=== PATIENT | female | born 1995 | race Caucasian/White ===

== ENCOUNTER 2023-01-15 02:02 | Emergency (ER) | payer SELFPAY ==
[2023-01-15 02:18] VITALS: BP 161/100; PULSE 98; RESP 18; TEMP 98.4
[2023-01-15] MEDS ORDERED: CLINDAMYCIN 600MG PREMIX IVPB 600 MG/50 ML BAG IVPB ONE (05:26)
[2023-01-15 05:35] LABS: BASO % 0.4 % (0-2.0); EOS % 1.3 % (0-4.5); HEMATOCRIT 29.8 % (32.4-45.2); HEMOGLOBIN 9.9 GM/dL (10.7-15.3); LYMPH % 18.7 % (8-40); MCH 28.8 pg (25.7-33.7); MCHC 33.1 g/dl (32.0-36.0); MEAN CELL VOLUME 86.9 fl (80-96); MEAN PLT VOLUME 8.8 fl (7.5-11.1); MONO % 10.5 % (3.8-10.2); NEUT % 69.1 % (42.8-82.8); PLATELET COUNT 280 10^3/uL (134-434); RBC 3.43 M/mm3 (3.60-5.2); WHITE BLOOD COUNT 4.9 K/mm3 (4.0-10.0)
[2023-01-15 05:36] LABS: POTASSIUM 4.1 mmol/L (3.5-5.1)
[2023-01-15 05:38] LABS: ALBUMIN 3.1 g/dl (3.4-5.0); BLOOD UREA NITROGEN 11.2 mg/dL (7-18); CALCIUM 8.9 mg/dL (8.5-10.1)
[2023-01-15 05:41] LABS: CREATININE 0.6 mg/dL (0.55-1.3)
[2023-01-15 05:43] LABS: BILIRUBIN,TOTAL 0.2 mg/dL (0.2-1); TOT PROT 7.3 g/dl (6.4-8.2)
== END 2023-01-15 06:24 | disposition left against medical advice (07) ==
LOC: EDBD 02:02 → JER 02:02
CPT/HCPCS: 36415; 73590-TC-RT-FY; 80053; 84702; 85025; 93005; 93010; 99285-25

== ENCOUNTER 2023-06-02 01:46 | Observation (INO) | payer SELFPAY ==
[2023-06-02 02:00] VITALS: BMI 33.6
[2023-06-02 03:50] LABS: BASO % 0.6 % (0-2.0); EOS % 3.3 % (0-4.5); HEMATOCRIT 34.6 % (32.4-45.2); HEMOGLOBIN 11.2 GM/dL (10.7-15.3); LYMPH % 25.2 % (8-40); MCH 26.8 pg (25.7-33.7); MCHC 32.3 g/dl (32.0-36.0); MEAN PLT VOLUME 8.4 fl (7.5-11.1); MONO % 13.9 % (3.8-10.2); PLATELET COUNT 269 10^3/uL (134-434); RBC 4.17 M/mm3 (3.60-5.2); RDW 16.7 % (11.6-15.6); WHITE BLOOD COUNT 4.6 K/mm3 (4.0-10.0)
[2023-06-02 04:01] LABS: POTASSIUM 4.1 mmol/L (3.5-5.1)
[2023-06-02 04:05] LABS: ALBUMIN 3.8 g/dl (3.4-5.0); BLOOD UREA NITROGEN 13.3 mg/dL (7-18); CALCIUM 9.2 mg/dL (8.5-10.1)
[2023-06-02 04:07] LABS: CREATININE 0.7 mg/dL (0.55-1.3)
[2023-06-02 04:08] LABS: BILIRUBIN,TOTAL 0.2 mg/dL (0.2-1); TOT PROT 8.4 g/dl (6.4-8.2)
[2023-06-02 04:10] LABS: N-TERMINAL BNP 47.9 pg/ml (5-125)
[2023-06-02] MEDS ORDERED: CLINDAMYCIN 600MG PREMIX IVPB 600 MG/50 ML BAG IVPB ONE ×2 (04:35→05:14)
[2023-06-02 05:22] VITALS: BP 99/60; PULSE 81; RESP 14; TEMP 98.3
[2023-06-02 06:37] LABS: INR 1.07 (0.83-1.09); PROTHROMBIN TIME (PATIENT) 12.4 SEC (9.7-13.0)
== END 2023-06-02 06:20 | disposition left against medical advice (07) ==
LOC: JER 01:46 → JERBED 05:40
PROVIDERS: ADMIT Internal Medicine; ATTEND Internal Medicine
CPT/HCPCS: 36415; 71045-TC-FY; 80053; 83735; 83880; 84484; 84703; 85025; 85610; 85730; 86140; 93005; 93010; 99285-25; G0378

== ENCOUNTER 2023-06-03 05:43 | Inpatient (IN) | payer OTHER ==
[2023-06-03 05:49] VITALS: BP 152/84; PULSE 65; RESP 17; BMI 34.3
[2023-06-03 05:50] VITALS: TEMP 98.4
[2023-06-03] MEDS ORDERED: CLINDAMYCIN 600MG PREMIX IVPB 600 MG/50 ML BAG IVPB ONE ×2 (07:12→07:33)
[2023-06-03 07:37] LABS: POTASSIUM 4.1 mmol/L (3.5-5.1)
[2023-06-03 07:38] LABS: CALCIUM 9.1 mg/dL (8.5-10.1)
[2023-06-03 07:39] LABS: ALBUMIN 3.6 g/dl (3.4-5.0); BLOOD UREA NITROGEN 14.1 mg/dL (7-18)
[2023-06-03 07:43] LABS: BILIRUBIN,TOTAL 0.2 mg/dL (0.2-1); CREATININE 0.7 mg/dL (0.55-1.3)
[2023-06-03 07:47] LABS: BASO % 0.5 % (0-2.0); EOS % 3.1 % (0-4.5); HEMATOCRIT 31.6 % (32.4-45.2); HEMOGLOBIN 9.9 GM/dL (10.7-15.3); LYMPH % 29.3 % (8-40); MCHC 31.3 g/dl (32.0-36.0); MEAN CELL VOLUME 83.1 fl (80-96); MEAN PLT VOLUME 7.7 fl (7.5-11.1); MONO % 9.3 % (3.8-10.2); NEUT % 57.8 % (42.8-82.8); PLATELET COUNT 369 10^3/uL (134-434); RBC 3.81 M/mm3 (3.60-5.2); WHITE BLOOD COUNT 3.9 K/mm3 (4.0-10.0)
== END 2023-06-03 12:09 | disposition home or self-care (01) | DRG 383 ==
LOC: JER 05:43 → JERBED 09:27
PROVIDERS: ADMIT Internal Medicine; ATTEND Internal Medicine
DX: L03.116 Cellulitis of left lower limb (principal); F17.210 Nicotine dependence, cigarettes, uncomplicated; R06.09 Other forms of dyspnea; R26.2 Difficulty in walking, not elsewhere classified; R60.0 Localized edema; L03.115 Cellulitis of right lower limb
CPT/HCPCS: 36415; 80053; 85025; 93970-TC; 99285-25

== ENCOUNTER 2023-06-21 06:21 | Emergency (ER) | payer OTHER ==
[2023-06-21 06:37] VITALS: BP 143/87; PULSE 98; RESP 22; TEMP 98.3; BMI 40.0
== END 2023-06-21 08:14 | disposition left against medical advice (07) ==
LOC: JER 06:21
DX: R22.43 Localized swelling, mass and lump, lower limb, bilateral (principal); L53.9 Erythematous condition, unspecified; Z53.21 Procedure and treatment not carried out due to patient leaving prior to being seen by health care provider
CPT/HCPCS: 99281-25

== ENCOUNTER 2023-06-27 02:13 | Inpatient (IN) | payer OTHER ==
[2023-06-27 02:27] VITALS: BMI 35.2
[2023-06-27 04:49] LABS: EOS % 2.9 % (0-4.5); HEMATOCRIT 27.3 % (32.4-45.2); HEMOGLOBIN 9.1 GM/dL (10.7-15.3); LYMPH % 30.3 % (8-40); MCHC 33.4 g/dl (32.0-36.0); MEAN CELL VOLUME 80.6 fl (80-96); MEAN PLT VOLUME 7.4 fl (7.5-11.1); MONO % 10.9 % (3.8-10.2); NEUT % 54.9 % (42.8-82.8); PLATELET COUNT 297 10^3/uL (134-434); RBC 3.39 M/mm3 (3.60-5.2); RDW 15.5 % (11.6-15.6); WHITE BLOOD COUNT 4.2 K/mm3 (4.0-10.0)
[2023-06-27 05:01] LABS: POTASSIUM 3.7 mmol/L (3.5-5.1)
[2023-06-27 05:03] LABS: CALCIUM 8.6 mg/dL (8.5-10.1)
[2023-06-27 05:04] LABS: ALBUMIN 3.3 g/dl (3.4-5.0); BLOOD UREA NITROGEN 13.4 mg/dL (7-18)
[2023-06-27] MEDS ORDERED: VANCOMYCIN 1,000 MG in DEXTROSE 5%-WATER - 250 ML IVPB ONE (05:06)
[2023-06-27 05:07] LABS: CREATININE 0.8 mg/dL (0.55-1.3)
[2023-06-27 05:08] LABS: BILIRUBIN,TOTAL 0.1 mg/dL (0.2-1)
[2023-06-27] MEDS ORDERED: VANCOMYCIN 1 GRAM (PRE-DOCKED) 1,000 MG/250 ML BAG IVPB ONE (06:24)
[2023-06-27 08:03] VITALS: BP 132/72; PULSE 85; RESP 16; TEMP 99
[2023-06-27] MEDS ORDERED: ENOXAPARIN NA (PORCINE) 40 MG/0.4 ML DISP.SYRIN SQ ONE (09:56)
[2023-06-27] MEDS ORDERED: ENOXAPARIN NA (PORCINE) 40 MG/0.4 ML DISP.SYRIN SQ SCH (10:00)
[2023-06-27] MEDS ORDERED: VANCOMYCIN/WATER 1250 MG 1,250 MG/250 ML BAG IVPB SCH ×2 (18:00)
== END 2023-06-27 10:41 | disposition left against medical advice (07) | DRG 383 ==
LOC: JER 02:13 → JERBED 07:56
PROVIDERS: ADMIT Internal Medicine; ATTEND Internal Medicine
DX: L03.116 Cellulitis of left lower limb (principal); L03.115 Cellulitis of right lower limb; F17.210 Nicotine dependence, cigarettes, uncomplicated; M79.89 Other specified soft tissue disorders
CPT/HCPCS: 36415; 80053; 84703; 85025; 87040; 93005; 93010; 99285-25

== ENCOUNTER 2023-06-28 22:47 | Observation (INO) | payer OTHER ==
[2023-06-28] MEDS ORDERED: DALBAVANCIN HCL 1,500 MG in DEXTROSE 5%-WATER - 500 ML IVPB ONE (22:56)
[2023-06-28] MEDS ORDERED: PIPERACILLIN/TAZOB 4.5 GM 4.5 GM in DEXTROSE 5%-WATER 100 ML IVPB ONE (23:02)
[2023-06-28] MEDS ORDERED: PIPERACILLIN/TAZOBACTAM 4.5 GM VIAL IVPB ONE (23:34)
[2023-06-28 23:39] LABS: HEMATOCRIT 29.5 % (32.4-45.2); HEMOGLOBIN 9.6 G/dL (10.7-15.3); MCH 26.9 pg (25.7-33.7); MCHC 32.7 g/dl (32.0-36.0); MEAN CELL VOLUME 82.4 fl (80-96); MEAN PLT VOLUME 7.9 fl (7.5-11.1); PLATELET COUNT 340.1 10^3/uL (134-434); RBC 3.58 10^6/uL (3.60-5.2); RDW 15.9 % (11.6-15.6); WHITE BLOOD COUNT 4.5 10^3/uL (4.0-10.8)
[2023-06-28 23:52] LABS: BILIRUBIN,TOTAL 0.3 mg/dl (0.2-1); CALCIUM 9.1 mg/dl (8.5-10.1); CREATININE 0.7 mg/dl (0.6-1.3); POTASSIUM 3.7 mmol/L (3.5-5.1); TOT PROT 7.1 g/dl (6.4-8.2)
[2023-06-29 03:11] VITALS: BMI 34.9
[2023-06-29] MEDS ORDERED: VANCOMYCIN HCL 1,500 MG in DEXTROSE 5%-WATER - 250 ML IVPB SCH (07:00)
[2023-06-29] MEDS ORDERED: VANCOMYCIN PREMIX 1.5 GM 1,500 MG/300 ML BAG IVPB SCH (07:30)
[2023-06-29 08:49] LABS: CALCIUM 8.6 mg/dl (8.5-10.1); CREATININE 0.8 mg/dl (0.6-1.3)
[2023-06-29 09:25] LABS: BASO % 0.5 % (0-2.0); EOS % 2.4 % (0-4.5); HEMOGLOBIN 8.8 GM/dL (10.7-15.3); LYMPH % 31.4 % (8-40); MCH 25.8 pg (25.7-33.7); MCHC 31.3 g/dl (32.0-36.0); MEAN CELL VOLUME 82.3 fl (80-96); MEAN PLT VOLUME 7.6 fl (7.5-11.1); MONO % 13.8 % (3.8-10.2); NEUT % 51.9 % (42.8-82.8); PLATELET COUNT 306 10^3/uL (134-434); RBC 3.41 M/mm3 (3.60-5.2); RDW 15.7 % (11.6-15.6); WHITE BLOOD COUNT 3.3 K/mm3 (4.0-10.0)
[2023-06-29] MEDS: CEFAZOLIN 1 GM in DEXTROSE 5%-WATER - 50 ML IVPB SCH (18:03)
[2023-06-29] MEDS: FERROUS SO4 325 MG TABLET (FP) PO SCH (18:03)
[2023-06-30] MEDS: CEFAZOLIN 1 GM in DEXTROSE 5%-WATER - 50 ML IVPB SCH ×2 (01:04→10:08)
[2023-06-30 06:31] VITALS: PULSE 70; RESP 18
[2023-06-30 08:39] LABS: POTASSIUM 4.1 mmol/L (3.5-5.1)
[2023-06-30 09:20] VITALS: BP 110/56; TEMP 97.9
[2023-06-30 09:42] LABS: ALBUMIN 3.6 g/dl (3.4-5.0); BILIRUBIN,TOTAL 0.2 mg/dl (0.2-1); CREATININE 0.8 mg/dl (0.6-1.3); TOT PROT 6.3 g/dl (6.4-8.2)
[2023-06-30 09:50] LABS: BASO % 0.3 % (0-2.0); EOS % 2.3 % (0-4.5); HEMATOCRIT 27.9 % (32.4-45.2); LYMPH % 34.1 % (8-40); MCH 26.4 pg (25.7-33.7); MCHC 32.3 g/dl (32.0-36.0); MEAN CELL VOLUME 81.9 fl (80-96); MEAN PLT VOLUME 7.6 fl (7.5-11.1); MONO % 14.7 % (3.8-10.2); NEUT % 48.6 % (42.8-82.8); PLATELET COUNT 289 10^3/uL (134-434); RBC 3.41 M/mm3 (3.60-5.2); RDW 15.6 % (11.6-15.6); WHITE BLOOD COUNT 3.8 K/mm3 (4.0-10.0)
[2023-06-30] MEDS: FERROUS SO4 325 MG TABLET (FP) PO SCH (10:08)
[2023-06-30] MEDS ORDERED: methaDONE HCL 10 MG TABLET PO ONE (12:00)
[2023-07-01] MEDS ORDERED: methaDONE HCL 10 MG TABLET PO SCH (06:00)
== END 2023-06-30 14:03 | disposition home or self-care (01) ==
LOC: FER 22:47 → FM/S 06-29 00:57
PROVIDERS: ADMIT Internal Medicine
PROC: 3E03329 Introduction of Other Anti-infective into Peripheral Vein, Percutaneous Approach (ICD-10-PCS; principal; 2023-06-29)
PROC: 3E0337Z Introduction of Electrolytic and Water Balance Substance into Peripheral Vein, Percutaneous Approach (ICD-10-PCS; 2023-06-29)
DX: L03.116 Cellulitis of left lower limb (principal); L03.115 Cellulitis of right lower limb; I10 Essential (primary) hypertension; E78.5 Hyperlipidemia, unspecified; E66.9 Obesity, unspecified; F17.210 Nicotine dependence, cigarettes, uncomplicated
CPT/HCPCS: 36415; 80048; 80053; 85025; 85027; 87040; 93970-TC; 96361; 96365; 96367; 99285-25; G0378

== ENCOUNTER 2023-07-26 03:14 | Emergency (ER) | payer OTHER ==
[2023-07-26 03:28] VITALS: BP 164/95; PULSE 91; RESP 18; TEMP 98.4; BMI 34.3
[2023-07-26] MEDS ORDERED: ACETAMINOPHEN 1000 MG/100 ML BAG IVPB ONE (08:17)
[2023-07-26] MEDS ORDERED: ACETAMINOPHEN INJECTION 100 ML IVPB ONE (08:42)
== END 2023-07-26 11:24 | disposition left against medical advice (07) ==
LOC: JER 03:14
DX: L03.115 Cellulitis of right lower limb (principal); L03.116 Cellulitis of left lower limb
CPT/HCPCS: 82962; 99281-25

== ENCOUNTER 2023-07-27 20:42 | Emergency (ER) | payer OTHER ==
[2023-07-27 20:50] VITALS: BP 115/79; PULSE 71; RESP 18; TEMP 97.9; BMI 35.2
== END 2023-07-27 21:00 | disposition home or self-care (01) ==
LOC: JER 20:42
DX: F19.10 Other psychoactive substance abuse, uncomplicated (principal); L03.116 Cellulitis of left lower limb; L03.115 Cellulitis of right lower limb; L53.9 Erythematous condition, unspecified; R60.0 Localized edema
CPT/HCPCS: 99281-25

== ENCOUNTER 2023-07-27 22:31 | Inpatient (IN) | payer OTHER ==
[2023-07-27 22:50] VITALS: BMI 33.5
[2023-07-27] MEDS ORDERED: ONDANSETRON *ODT* 4 MG TABLET SL PRN (23:06)
[2023-07-27] MEDS ORDERED: NICOTINE POLACRILEX 4 MG GUM BUC PRN (23:06)
[2023-07-27] MEDS ORDERED: MAG HYDROX/AL HYDROX/SIMETH 30 ML UNIT-DOSE CUP PO PRN (23:06)
[2023-07-27] MEDS ORDERED: METHOCARBAMOL 500 MG TABLET PO PRN (23:06)
[2023-07-27] MEDS ORDERED: guaiFENesin 600 MG TABLET.ER (FP) PO PRN (23:06)
[2023-07-27] MEDS ORDERED: LOPERAMIDE HCL 2 MG CAPSULE PO PRN (23:06)
[2023-07-27] MEDS ORDERED: BISMUTH SUBSALICYLATE 524 MG/30 ML PO PRN (23:06)
[2023-07-27] MEDS ORDERED: BENZOCAINE/MENTHOL (CHLORASEPTIC ) LOZENGE MM PRN (23:06)
[2023-07-27] MEDS ORDERED: POLYETHYLENE GLYCOL (HEALTHYLAX) 3350 17 GM PACKET PO PRN (23:06)
[2023-07-27] MEDS ORDERED: DICYCLOMINE HCL 10 MG CAPSULE PO PRN (23:06)
[2023-07-27] MEDS ORDERED: IBUPROFEN 600 MG TABLET (FP) PO PRN (23:06)
[2023-07-27] MEDS ORDERED: BENZONATATE 200 MG CAPSULE PO PRN (23:06)
[2023-07-27] MEDS ORDERED: NALOXONE HCL (KLOXXADO) 8 MG SPRAY NS PRN (23:06)
[2023-07-27] MEDS ORDERED: MAGNESIUM HYDROX 2400MG/30ML ORAL SUSPENSION 30 ML CUP PO PRN (23:06)
[2023-07-27] MEDS ORDERED: ACETAMINOPHEN 325 MG TABLET (FP) PO PRN (23:06)
[2023-07-27] MEDS ORDERED: IBUPROFEN 400 MG TABLET (FP) PO PRN (23:06)
[2023-07-27] MEDS ORDERED: hydrOXYzine PAMOATE 25 MG CAPSULE (FP) PO PRN (23:06)
[2023-07-27] MEDS ORDERED: NALOXONE HCL 0.4 MG/ML VIAL IM PRN (23:06)
[2023-07-28] MEDS ORDERED: PRENATAL VITAMINS W/ FOLIC ACID TABLET (FP) PO SCH (10:00)
[2023-07-28] MEDS ORDERED: NICOTINE 14 MG/24 HOURS TOPICAL PATCH TD SCH (10:00)
[2023-07-28] MEDS ORDERED: amLODIPine BESYLATE 5 MG TABLET (FP) PO SCH (10:00)
[2023-07-28] MEDS ORDERED: methaDONE HCL 10 MG TABLET (FOR DETOX USE ONLY) PO ONE (10:00)
[2023-07-28] MEDS: AMOX TR/POT CLAV 500MG/125MG TABLETS (FP) PO SCH ×2 (10:15→18:12)
[2023-07-28] MEDS: DOXYCYCLINE HYCLATE 100 MG TABLET PO SCH ×2 (10:16→18:12)
[2023-07-28] MEDS ORDERED: MELATONIN 5 MG TABLETS PO SCH (22:00)
[2023-07-28] MEDS ORDERED: THIAMINE HCL 100 MG TABLET (FP) PO SCH (22:00)
[2023-07-29 06:01] VITALS: BP 143/89; PULSE 81; RESP 18; TEMP 98.9
[2023-07-29] MEDS: AMOX TR/POT CLAV 500MG/125MG TABLETS (FP) PO SCH (07:00)
[2023-07-30] MEDS ORDERED: methaDONE HCL 10 MG TABLET (FOR DETOX USE ONLY) PO ONE (10:00)
[2023-08-01] MEDS ORDERED: methaDONE HCL 10 MG TABLET (FOR DETOX USE ONLY) PO ONE (10:00)
== END 2023-07-29 07:18 | disposition left against medical advice (07) | DRG 770 ==
LOC: YASAS 22:31 → Y6N 23:26
PROVIDERS: ADMIT Allergy & Immunology; ATTEND Allergy & Immunology
PROC: HZ2ZZZZ Detoxification Services for Substance Abuse Treatment (ICD-10-PCS; principal; 2023-07-27)
DX: F11.23 Opioid dependence with withdrawal (principal); F14.20 Cocaine dependence, uncomplicated; F17.210 Nicotine dependence, cigarettes, uncomplicated; F19.24 Other psychoactive substance dependence with psychoactive substance-induced mood disorder; I10 Essential (primary) hypertension; L03.113 Cellulitis of right upper limb; L03.114 Cellulitis of left upper limb; Z28.310 Unvaccinated for COVID-19; Z28.9 Immunization not carried out for unspecified reason
CPT/HCPCS: 36415; 80053; 80307; 81025; 82962; 85025; 86780; 87635; 93005; 93010; 93970-TC; 99282-25; J0875

== ENCOUNTER 2024-05-21 15:44 | Emergency (ER) | payer OTHER ==
[2024-05-21 16:04] VITALS: BP 149/50; PULSE 98; RESP 16; TEMP 98.8; BMI 28.7
[2024-05-21] MEDS ORDERED: FAMOTIDINE 20 MG/50 ML IVPB 20 MG/50 ML MG IVPB ONE (16:18)
[2024-05-21] MEDS ORDERED: methylPREDNISolone NA SUCC 125 MG/2 ML VIAL ONE (16:40)
[2024-05-21 16:43] LABS: BASO % 0.3 % (0-2.0); EOS % 1.3 % (0-4.5); HEMATOCRIT 32.7 % (32.4-45.2); HEMOGLOBIN 11.2 GM/dL (10.7-15.3); LYMPH % 16.1 % (8-40); MCH 30.2 pg (25.7-33.7); MCHC 34.2 g/dl (32.0-36.0); MEAN CELL VOLUME 88.4 fl (80-96); MONO % 7.8 % (3.8-10.2); NEUT % 74.5 % (42.8-82.8); PLATELET COUNT 291 10^3/uL (134-434); RDW 14.1 % (11.6-15.6); WHITE BLOOD COUNT 7.8 K/mm3 (4.0-10.0)
[2024-05-21] MEDS ORDERED: diphenhydrAMINE HCL 25 MG CAPSULE (FP) PO ONE (17:01)
[2024-05-21 17:02] LABS: POTASSIUM 4.1 mmol/L (3.5-5.1)
[2024-05-21 17:04] LABS: BLOOD UREA NITROGEN 13.5 mg/dL (7-18)
[2024-05-21 17:07] LABS: CREATININE 0.9 mg/dL (0.55-1.3)
[2024-05-21] MEDS: methylPREDNISolone NA SUCC 125 MG/2 ML VIAL IVPB ONE (17:12)
[2024-05-21] MEDS: diphenhydrAMINE HCL 25 MG CAPSULE (FP) PO ONE (17:13)
== END 2024-05-21 17:10 | disposition home or self-care (01) ==
LOC: JER 15:44
PROC: 3E033GC Introduction of Other Therapeutic Substance into Peripheral Vein, Percutaneous Approach (ICD-10-PCS; principal; 2024-05-21)
DX: R21 Rash and other nonspecific skin eruption (principal); T78.40XA Allergy, unspecified, initial encounter
CPT/HCPCS: 36415; 80048; 85025; 99284-25

== ENCOUNTER 2025-02-16 04:02 | Emergency (ER) | payer OTHER ==
[2025-02-16 04:23] VITALS: RESP 18; BMI 21.6
[2025-02-16] MEDS ORDERED: ACETAMINOPHEN 325 MG TABLET (FP) ONE (05:17)
[2025-02-16] MEDS: ACETAMINOPHEN 500 MG TABLET (FP) PO ONE (05:32)
[2025-02-16 06:11] LABS: THROAT:GRP A STREP DETECTED (NOTDETECTED)
[2025-02-16] MEDS ORDERED: PENICILLIN G BENZATHINE 1,200,000 UNIT/2 ML PFS IM ONE (06:19)
[2025-02-16 06:32] LABS: ABSOLUTE IMMATURE GRANULOCYTES 0.05 x10^3/uL (0.0-0.031); BASOPHILS # 0.02 x10^3/uL (0.01-0.08); EOSINOPHIL % 1.0 % (0.7-5.8); EOSINOPHILS # 0.13 x10^3/uL (0.04-0.36); MCHC 30.4 g/dl (32.2-35.5); MEAN CELL VOLUME 84.0 fl (79.4-94.8); MEAN PLT VOLUME 9.7 fl (9.4-12.3); MONOCYTE # 0.98 x10^3/uL (0.24-0.86); MONOCYTE % 7.3 % (4.7-12.5); RDW 15.1 % (12.1-16.8)
[2025-02-16] MEDS: PENICILLIN G BENZATHINE 1,200,000 UNIT/2 ML PFS IM ONE (06:34)
[2025-02-16 07:12] LABS: CO2 29.0 mmol/L (21-32); GLUCOSE,RANDOM 113.0 mg/dL (74-106)
[2025-02-16 07:14] LABS: SGPT/ALT 17.0 U/L (13-61)
[2025-02-16 07:15] LABS: CREATININE 0.6 mg/dL (0.55-1.3); SGOT/AST 15.0 U/L (15-37)
[2025-02-16 07:16] LABS: TOT PROT 7.6 g/dl (6.4-8.2)
[2025-02-16 07:17] LABS: ALK PHOS 69.0 U/L (45-117)
[2025-02-16 11:20] VITALS: BP 146/100; PULSE 91; TEMP 98.6
[2025-02-19 04:17] LABS: HIV INTERPRETATION NEGATIVE (NEGATIVE)
[2025-02-20 05:21] LABS: HCV DIAGNOSTIC IN-HOUSE W/RFLX REACTIVE (NONREACTIVE)
== END 2025-02-16 11:38 | disposition home or self-care (01) ==
LOC: JER 04:02
DX: J02.0 Streptococcal pharyngitis (principal); F11.229 Opioid dependence with intoxication, unspecified; R40.0 Somnolence; M25.9 Joint disorder, unspecified; R94.31 Abnormal electrocardiogram [ECG] [EKG]
CPT/HCPCS: 36415; 80053; 83735; 84703; 85025; 86803; 87389; 87522; 87637-QW; 87651; 93005; 93010; 99284-25